=== PATIENT | male | born 1950 | race Caucasian/White ===

== ENCOUNTER → 2019-02-09 | Outpatient (CLI) | payer MEDICARE, OTHER ==
[2019-02-09 10:57] LABS: ALBUMIN 3.8 g/dL (3.4-5.0); ALBUMIN/GLOBULIN RATIO 1.1 (1.0-1.7); CREATININE 0.8 mg/dL (0.7-1.3); GFR 96.7; POTASSIUM 4.3 mmol/L (3.5-5.1); TOTAL BILIRUBIN 0.6 mg/dL (0.2-1.0); TOTAL PROTEIN 7.2 g/dL (6.4-8.2)
== END | disposition home or self-care (01) ==
LOC: LAB 09:52
PROVIDERS: ATTEND Family Medicine
DX: Z12.5 Encounter for screening for malignant neoplasm of prostate (principal); E78.2 Mixed hyperlipidemia
CPT/HCPCS: 36415; 80053; 80061; G0103

== ENCOUNTER → 2019-10-19 | Outpatient (CLI) | payer MEDICARE, OTHER ==
--- NOTE | 2019-10-19 11:59 | RAD ---
Impression: CT of the abdomen pelvis without contrast HISTORY: History of left flank pain, hematuria COMPARISON: None available TECHNIQUE: Axial CT images of the abdomen pelvis without contrast. Coronal and sagittal reformats are performed Exposure: One or more of the following individualized dose reduction techniques were utilized for this examination: 1. Automated exposure control 2. Adjustment of the mA and/or kV according to patient size 3. Use of iterative reconstruction technique FINDINGS: The bibasilar lungs are clear. No evidence of free air identified in the abdomen. The evaluation of the solid organs is limited due to lack of IV contrast. The evaluation of bowel is limited due to lack of oral contrast. The visualized noncontrasted liver, spleen, right adrenal grossly appears unremarkable. 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 The visualized pancreas grossly appears unremarkable. The small bowel is nondilated. The appendix is normal. Feces and gas noted in the colon Few sigmoid colon diverticulosis. There is metallic density identified abutting the right cecum. Moderate left-sided hydronephrosis and identified with 5 mm calculus identified in the left ureteropelvic junction. Mild aortic atherosclerosis Moderate degenerative changes lower lumbar spine. IMPRESSION: 1. 5 mm calculus identified the left ureteropelvic junction causing moderate right-sided hydronephrosis. Critical result: Findings discussed with MARCELO aparicio at 10/19/2019 11:55 AM. Electronically signed by: Tomas Sousa MD (10/19/2019 11:56 AM) [id number]
== END ==
LOC: CT 10:43
PROVIDERS: ATTEND Family Medicine
DX: N20.1 Calculus of ureter (principal); N13.30 Unspecified hydronephrosis; K57.30 Diverticulosis of large intestine without perforation or abscess without bleeding; I70.0 Atherosclerosis of aorta; M47.816 Spondylosis without myelopathy or radiculopathy, lumbar region
CPT/HCPCS: 74176